=== PATIENT | male | born 1960 | race Caucasian/White ===

== ENCOUNTER 2018-03-18 06:12 | Emergency (ER) | payer OTHER ==
[~2018-03-18] VITALS: Ht 170.2 cm; Wt 109.0 kg
[2018-03-18] MEDS ORDERED: LORAZEPAM 1MG TABLET PO ONE (07:00)
[2018-03-18 07:31] LABS: BASOPHILS % 0.8 % (0.0-2.0); EOSINOPHILS % 1.1 % (0.0-5.0); HEMATOCRIT. 44.3 % (42.0-52.0); HEMOGLOBIN. 14.8 g/dL (14.0-18.0); LYMPHOCYTES % 11.3 % (20.0-50.0); MEAN CORPUSCULAR HEMOGLOBIN 30.9 pg (28.0-32.0); MEAN CORPUSCULAR VOLUME 92.2 fL (80.0-94.0); MEAN PLATELET VOLUME 8.3 fl (7.4-10.4); MONOCYTES % 8.1 % (2.0-8.0); NEUTROPHILS % 78.7 % (40.0-76.0); PLATELET 240 x1000/uL (130-400); RED CELL DISTRIBUTION WIDTH 14.2 % (11.6-14.6)
[2018-03-18 07:34] LABS: CHLORIDE 100 mEq/L (98-107)
[2018-03-18 07:35] LABS: INR 1.1; PROTHROMBIN TIME 10.7 sec (9.1-11.1)
[2018-03-18 10:11] LABS: *BARBITURATES SCREEN URINE NEGATIVE (NEGATIVE); *BENZODIAZEPINES SCREEN URINE PRESUMTIVE POSITIVE (NEGATIVE); *COCAINE SCREEN URINE NEGATIVE (NEGATIVE); CANNABINOID URINE SCREEN PRESUMTIVE POSITIVE (NEGATIVE); METHADONE URINE SCREEN NEGATIVE (NEGATIVE); OPIATES URINE SCREEN NEGATIVE (NEGATIVE); PHENCYCLIDINE URINE SCREEN NEGATIVE (NEGATIVE)
[2018-03-18 10:15] LABS: *AMPHETAMINES SCREEN URINE PRESUMTIVE POSITIVE (NEGATIVE)
[2018-03-18] MEDS ORDERED: OLANZAPINE 10 MG/VIAL IM ONE (11:30)
[2018-03-18] MEDS ORDERED: DIPHENHYDRAMINE 50MG/ML VIAL IM ONE (11:30)
[2018-03-18] MEDS ORDERED: LORAZEPAM 2MG/ML CPJ IM ONE (11:30)
[2018-03-18] MEDS ORDERED: POTASSIUM CHLORIDE 20MEQ TABLET SR PO ONE (19:30)
[2018-03-18 20:14] VITALS: BP 128/62
== END 2018-03-18 20:53 | disposition home or self-care (01) ==
LOC: ER 06:12
DX: R06.02 Shortness of breath (principal); F41.9 Anxiety disorder, unspecified; F19.10 Other psychoactive substance abuse, uncomplicated; R06.00 Dyspnea, unspecified; F17.200 Nicotine dependence, unspecified, uncomplicated; F12.10 Cannabis abuse, uncomplicated; F15.10 Other stimulant abuse, uncomplicated
CPT/HCPCS: 36415; 71045; 80053; 80305; 83880; 84484; 85025; 85610; 93005; 96372; 99285; G0482; J1200; J2060; J3490

== ENCOUNTER 2018-03-18 20:46 | Emergency (ER) | payer OTHER ==
[~2018-03-18] VITALS: Ht 170.2 cm; Wt 109.0 kg
[2018-03-18] MEDS ORDERED: ACETAMINOPHEN 325MG TABLET PO ONE (23:45)
[2018-03-19 00:16] VITALS: BP 125/70
== END 2018-03-19 00:18 | disposition home or self-care (01) ==
LOC: ER 20:46
DX: R07.81 Pleurodynia (principal); M25.512 Pain in left shoulder; Y04.8XXA Assault by other bodily force, initial encounter; Y93.9 Activity, unspecified; Y92.538 Other ambulatory health services establishments as the place of occurrence of the external cause
CPT/HCPCS: 99282

== ENCOUNTER 2018-06-14 21:46 | Emergency (ER) | payer OTHER ==
[~2018-06-14] VITALS: Ht 170.2 cm; Wt 82.0 kg
[2018-06-14 21:52] VITALS: BP 167/66
== END 2018-06-14 22:18 | disposition home or self-care (01) ==
LOC: ER 21:46
DX: F41.9 Anxiety disorder, unspecified (principal); I10 Essential (primary) hypertension; F22 Delusional disorders
CPT/HCPCS: 99284

== ENCOUNTER 2018-12-09 04:20 | Emergency (ER) | payer OTHER ==
[~2018-12-09] VITALS: Ht 162.6 cm; Wt 87.0 kg
[2018-12-09 05:18] LABS: BASOPHILS % 0.6 % (0.0-2.0); EOSINOPHILS % 0.5 % (0.0-5.0); HEMATOCRIT. 35.4 % (42.0-52.0); LYMPHOCYTES % 13.2 % (20.0-50.0); MEAN CORPUSCULAR VOLUME 91.5 fL (80.0-94.0); MEAN PLATELET VOLUME 7.3 fl (7.4-10.4); MONOCYTES % 6.7 % (2.0-8.0); PLATELET 205 x1000/uL (130-400); RED BLOOD CELL COUNT 3.87 mill/uL (4.7-6.1)
[2018-12-09 05:21] LABS: CHLORIDE 105 mEq/L (98-107)
[2018-12-09 05:24] LABS: ETHANOL BLOOD < 10 mg/dL
[2018-12-09 08:15] LABS: CLARITY URINE CLEAR (CLEAR); COLOR URINE YELLOW (YELLOW); KETONES URINE 1+ (NEGATIVE); LEUKOCYTE ESTERASE URINE NEGATIVE (NEGATIVE); NITRITE URINE NEGATIVE (NEGATIVE); OCCULT BLOOD URINE NEGATIVE (NEGATIVE); PROTEIN URINE NEGATIVE (NEGATIVE); SPECIFIC GRAVITY URINE 1.016 (1.005-1.030)
[2018-12-09 08:21] LABS: *AMPHETAMINES SCREEN URINE PRESUMTIVE POSITIVE (NEGATIVE); *BARBITURATES SCREEN URINE NEGATIVE (NEGATIVE); *BENZODIAZEPINES SCREEN URINE NEGATIVE (NEGATIVE); *COCAINE SCREEN URINE NEGATIVE (NEGATIVE); CANNABINOID URINE SCREEN PRESUMTIVE POSITIVE (NEGATIVE); METHADONE URINE SCREEN NEGATIVE (NEGATIVE); OPIATES URINE SCREEN NEGATIVE (NEGATIVE); PHENCYCLIDINE URINE SCREEN NEGATIVE (NEGATIVE)
[2018-12-09 12:00] VITALS: BP 115/64
== END 2018-12-09 12:19 | disposition home or self-care (01) ==
LOC: ER 04:20
DX: R44.3 Hallucinations, unspecified (principal); I10 Essential (primary) hypertension
CPT/HCPCS: 36415; 80305; 80307; 80320; 99284; G0480